=== PATIENT | male | born 1955 | race Caucasian/White ===

== ENCOUNTER 2016-07-26 11:48 | Emergency (ER) | payer BC, OTHER ==
[2016-07-26 12:15] VITALS: BP 101/70
[2016-07-26] MEDS ORDERED: Lidocaine 1% 50 ML MDV INJECT ONE (12:29)
--- NOTE | 2016-07-26 12:41 | EDM.PDOC ---
ED HPI GENERAL MEDICAL PROBLEM - General Chief Complaint: Laceration Stated Complaint: LT HAND LAC Time Seen by Provider: 07/26/16 12:13 Source of Information: Reports: Patient History Limitations: Reports: No Limitations - History of Present Illness INITIAL COMMENTS - FREE TEXT/NARRATIVE: 61-year-old male presents for evaluation and treatment of a laceration to the ventral left hand fingers 2 and 3. Injury occurred on 10:30 today. Patient was using a hand chisel reports the chisel slipped and he cut his left hand second and third fingers. He reports some odd sensation to the third finger but denies any numbness or tingling. No decreased range of motion. Tetanus is up-to-date. Patient is left-handed. 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: Dressing(s) left 2nd and 3rd fingers Pain Score (Numeric/FACES): 2 - Related Data Allergies Allergy/AdvReac Type Severity Reaction Status Date / Time No Known Allergies Allergy Verified 07/26/16 12:15 Home Meds: Home Meds Calcium Carbonate [Calcium] 500 mg PO DAILY 07/26/16 [History] Multivitamin [Multivitamins] 1 each PO DAILY 07/26/16 [History] [place] Oil/[place]-3 Fatty Acids [Sv [place] Oil 1,000 mg Softgel] 1 each PO DAILY 07/26/16 [History] Past Medical History - Past Health History Medical/Surgical History: Denies Medical/Surgical History - Past Surgical History Musculoskeletal Surgical History: Reports: Arthroscopic Knee, Shoulder Surgery Social & Family History - Family History Family Medical History: Noncontributory - Tobacco Use Smoking Status *Q: Current Some Day Smoker Years of Tobacco use: 10 Packs/Tins Daily: 0.2 - Caffeine Use Caffeine Use: Reports: Coffee - Recreational Drug Use Recreational Drug Use: No ED ROS GENERAL - Review of Systems Review Of Systems: See Below Musculoskeletal: Reports: Hand Pain (left hand from wounds), Other (no decreased ROM to the left hand) Skin: Reports: Wound (left hand ventral 2nd and 3rd fingers) Neurological: Denies: Numbness, Tingling ED EXAM, SKIN/RASH Exam: See Below Exam Limited By: No Limitations General Appearance: Alert, WD/WN, No Apparent Distress Respiratory/Chest: No Respiratory Distress Cardiovascular: Normal Peripheral Pulses, Regular Rate, Rhythm Peripheral Pulses: 2+: Radial (L) Extremities: Normal Range of Motion (Patient is able to make fists, flex and extend fingers with and against resistance and abduct and adduct the fingers of the left hand.), Normal Capillary Refill Neurological: Alert, Oriented, Normal Cognition Psychiatric: Normal Affect, Normal Mood Skin: Warm, Dry, Wound/Incision (1cm laceration to the left hand 3rd finger ventral proximal phalanx; 3 cm laceration to the left hand second finger ventral proximal phalanx) Location, Skin: Upper Extremity, Left Characteristics: Linear (3rd finger; 2rd fingder is irregular) Associated features: Tenderness ED SKIN PROCEDURES - Laceration/Wound Repair Left Ventral Finger Lac/Wound length In cm: 3 (left hand 2nd finger) Appearance: Subcutaneous, Irregular Distal NVT: Neuro & Vascular Intact, No Tendon Injury Anesthetic Type: Local Local Anesthesia - Lidocaine (Xylocaine): 1% Plain Local Anesthetic Volume: 3cc Skin Prep: Saline, Sterile Drape Exploration/Debridement/Repair: Wound Explored, No Foreign Material Found Closed with: Sutures Suture Size: 4-0 # of Sutures: 6 Suture Type: Nylon, Interrupted, Simple Sterile Dressing Applied: Nurse Tetanus Status Addressed: Yes Complications: No Left Finger Lac/Wound length In cm: 1 (left hand 3rd finger) Appearance: Subcutaneous, Linear Distal NVT: Neuro & Vascular Intact, No Tendon Injury Anesthetic Type: Local Local Anesthesia - Lidocaine (Xylocaine): 1% Plain Local Anesthetic Volume: 2cc Skin Prep: Saline, Sterile Drape, Other (kerraclens) Exploration/Debridement/Repair: No Foreign Material Found Closed with: Sutures Suture Size: 4-0 # of Sutures: 3 Suture Type: Nylon, Interrupted, Simple Sterile Dressing Applied: Nurse Tetanus Status Addressed: Yes Complications: No Course - Vital Signs Last Recorded V/S: Last Vital Signs Temp 36.3 C 07/26/16 12:12 Pulse 81 07/26/16 12:12 Resp 18 07/26/16 12:12 BP 101/70 07/26/16 12:12 Pulse Ox 100 07/26/16 12:12 - Orders/Labs/Meds Meds: Medications Discontinued Medications Generic Name Dose Route Start Last Admin Trade Name Freq PRN Reason Stop Dose Admin Lidocaine HCl 50 ml 07/26/16 12:29 07/26/16 12:47 Xylocaine 1% INJECT 07/26/16 12:30 50 ml ONETIME ONE Administration - Re-Assessments/Exams Free Text/Narrative Re-Assessment/Exam: 07/26/16 13:23 9 sutures in total were placed to the left hand second and third fingers. The patient tolerated the procedure well. There were no complications. His tetanus is up-to-date. Discharge instructions as documented. Departure - Departure Time of Disposition: 13:29 Disposition: Home, Self-Care 01 Condition: Good Clinical Impression: Laceration - Discharge Information Instructions: Laceration Care, Adult Referrals: PCP,None [Primary Care Provider] - Samantha Dang PA-C [Physician Captain Room Service] - Forms: ED Department Discharge, Return to Work/School Form Additional Instructions: Wash lacerations with gentle soap and water twice a day. Antibacterial ointment to the once twice a day. Keep covered. Recommend la taping the fingers to prevent movement to the area. Monitor for signs of infection such as increased swelling, redness or pus. Present today clinic or the ER should these develop. Have the sutures removed in 10 days. The same [facility] will remove them for free. All [phone] to schedule with a provider there. please return to the ER if your symptoms change or worsen.
== END 2016-07-26 13:53 | disposition home or self-care (01) ==
LOC: JD.ED 11:48
DX: S61.211A Laceration without foreign body of left index finger without damage to nail, initial encounter (principal); S61.213A Laceration without foreign body of left middle finger without damage to nail, initial encounter; W27.0XXA Contact with workbench tool, initial encounter
CPT/HCPCS: 12002; 99282; 99283-25